=== PATIENT | male | born 1955 | race Caucasian/White ===

== ENCOUNTER 2018-03-14 09:10 | Emergency (ER) | payer OTHER ==
[~2018-03-14] VITALS: Ht 167.6 cm; Wt 89.6 kg
[2018-03-14 09:15] VITALS: Ht 167.6 cm; Wt 89.6 kg
[2018-03-14] MEDS ORDERED: AMLO5TAB4 PO (09:34)
--- NOTE | 2018-03-14 09:37 | ERD ---
ER Documentation Chief Complaint Chief Complaint Sent from clinic for eval Hypertension HPI During the patient's encounter translation services were utilized Language: Czech Source: In person Extremely pleasant 62-year-old gentleman with known history of hypertension though has discontinued blood pressure medication 3 months ago because of homeopathic preference. The patient went to a clinic for evaluation. They noted that his blood pressure was elevated and sent him to the emergency room. The patient has no complaints other than occasional very mild frontal headache that is 1 out of 10 but not present currently. He denies any chest pain or chest pressure. He does not know the name of the blood pressure medication that he used in the past. He denies any slurred speech, vision changes, chest pressure, exertional symptoms or any other symptoms at this time. ROS All systems reviewed and are negative except as per history of present illness. Medications Home Meds Active Scripts Amlodipine Besylate* (Norvasc*) 5 Mg Tablet, 5 MG PO DAILY, #30 TAB Prov:FIDEL HIGH MD 03/14/18 Allergies Allergies: Coded Allergies: No Known Allergy (Unverified , 03/14/18) PMhx/Soc Medical and Surgical Hx: pt denies Medical Hx, pt denies Surgical Hx Hx Alcohol Use: No Hx Substance Use: No Hx Tobacco Use: No Smoking Status: Never smoker FmHx Family History: No diabetes Physical Exam Vitals Vital Signs Date Temp Pulse Resp B/P (MAP) Pulse Ox O2 O2 Flow FiO2 Time Delivery Rate 03/14/18 96.6 70 20 193/91 99 09:15 (125) Physical Exam General: Well developed, well nourished, no acute distress Head: Normocephalic, atraumatic. Eyes: Pupils equally reactive, EOM intact ENT: Moist mucous membranes Neck: Supple, no lymphadenopathy Respiratory: Lungs clear bilaterally, no distress Cardiovascular: RRR, no murmurs, rubs, or gallops Abdominal: Soft, non-tender, non-distended, no peritoneal signs : Deferred MSK: No edema, no unilateral swelling, 5/5 strength Neurologic: Alert and oriented, moving all extremities, normal speech, no focal weakness, no cerebellar signs Skin: No rash Psych: Normal mood Procedures/MDM The patient presents with asymptomatic hypertensive urgency. Blood pressure is trending down without intervention. Patient exhibits no signs or symptoms concerning for endorgan dysfunction. No evidence of DIRECTOR OF RESEARCH AND DEVELOPMENT process or intracranial hemorrhage. No evidence of exertional symptoms or acute coronary syndrome. No indication for laboratory testing or diagnostic imaging. The patient was informed that he needs to reinitiate antihypertensive medication. He will be given Norvasc and recommended to follow-up with primary care physician. Return precautions discussed and understood. We discussed follow up with the patient's primary care doctor within 24 to 48 hours as needed. We also discussed return to the emergency room for worsening symptoms or worsening condition. Outpatient referral: [None required] Discharge Medications: Norvasc 5 mg daily Departure Diagnosis: Primary Impression: Asymptomatic hypertensive urgency Condition: Good Patient Instructions: Hypertension, New (Begin Treatment) [facility] Usted se tinajero hecho un examen mdico de control que le indica que no est en elysia condicin que requiera tratamiento urgente en el Departamento de Emergencia. Un estudio ms profundo y el tratamiento de churchill condicin pueden esperar sin ningn riesgo hasta que usted sea atendida/o en el consultorio de churchill mdico o elysia clnica. Es responsabilidad suya arreglar elysia mary para el seguimiento del lanny. MANEJO DE CONDICIONES NO URGENTES EN EL FUTURO 1) Si usted tiene un mdico de atencin primaria: Usted debera llamar a churchill mdico de atencin primaria antes de venir al departamento de emergencia. Despus de las horas de consultorio, churchill doctor o churchill asociado/a est disponible por telfono. El mdico o enfermero de katelyn en el servicio telefnico puede asesorarle por josefina medio para atender el problema, o lanny contrario se puede programar elysia mary. 2) Si usted no tiene un mdico de atencin primaria: Llame al mdico o clnica de referencia que aparece abajo lawrence las horas de consultorio para hacer elysia mary para que le vean. CLINICAS: [facility] [phone] [id number] [facility] [phone] [address] [facility] [address] [facility] [phone] [place] [id number] [phone] [facility] [phone] [address] [facility] [phone] [facility] () Usted se tinajero hecho un examen mdico de control que le indica que no est en elysia condicin que requiera tratamiento urgente en el Departamento de Emergencia. Un estudio ms profundo y el tratamiento de churchill condicin pueden esperar sin ningn riesgo hasta que usted sea atendida/o en el consultorio de churchill mdico o elysia clnica. Es responsabilidad suya arreglar elysia mary para el seguimiento del lanny. MANEJO DE CONDICIONES NO URGENTES EN EL FUTURO 1) Si usted tiene un mdico de atencin primaria: Usted debera llamar a churchill mdico de atencin primaria antes de venir al departamento de emergencia. Despus de las horas de consultorio, churchill doctor o churchill asociado/a est disponible por telfono. El mdico o enfermero de katelyn en el servicio telefnico puede asesorarle por josefina medio para atender el problema, o lanny contrario se puede programar elysia mary. 2) Si usted no tiene un mdico de atencin primaria: Llame al mdico o condado institucions de referencia que aparece abajo lawrence las horas de consultorio para hacer elysia mary para que le vean. SI USTED NO PUEDE PAGAR PARA PELON UN MEDICO puede ir a: [facility] [id number] [place] [address] [facility] [address] [place] [address] [facility] [address] [place] [address] [facility] [address] [place], [place] [id number] Additional Instructions: Llame al doctor nombrado abajo (Referral Sources) MAANA y tasha elysia MARY PARA DENTRO DE ELYSIA SEMANA. Dgale a la secretaria que nosotros le instruimos hacer esta mary.Avise o llame si churchill condicin se empeora antes de la mary. FIDEL HIGH MD Mar 14, 2018 09:37
[2018-03-14] MEDS ORDERED: ATEN100T PO (09:43)
[2018-03-14 09:44] VITALS: BP 145/99; PULSE 72; RESP 18
== END 2018-03-14 09:56 | disposition home or self-care (01) ==
LOC: E/R 09:10
DX: I10 Essential (primary) hypertension (principal)
CPT/HCPCS: 99283